=== PATIENT | female | born 1970 | race Hispanic/Latino ===

== ENCOUNTER 2018-07-12 10:03 | Emergency (ER) | payer BC ==
[2018-07-12 11:01] LABS: BASOPHILS % (AUTO) 0.5 % (0.0-5.0); EOSINOPHILS % (AUTO) 0.3 % (0.0-8.0); HEMATOCRIT 30.8 % (36-48); LYMPHOCYTES % (AUTO) 19.5 % (21.0-51.0); MEAN CORPUSCULAR HEMOGLOBIN 21.3 pg (27.0-33.0); MEAN CORPUSCULAR HGB CONC 30.1 g/dL (32.0-36.0); MEAN CORPUSCULAR VOLUME 70.8 fL (79-99); MONOCYTES % (AUTO) 5.2 % (3.0-13.0); NEUTROPHILS % (AUTO) 74.5 % (40.0-77.0); NUCLEATED RED BLOOD CELLS 0.1 % (0.0-0.19); PLATELET COUNT (AUTO) 266 K/uL (130-400); RED BLOOD CELL COUNT(AUTO) 4.35 MIL/uL (4.00-5.50); RED CELL DISTRIBUTION WIDTH 16.2 % (11.0-15.5)
[2018-07-12 11:08] LABS: CREATININE 0.8 mg/dL (0.5-1.5); POTASSIUM 3.7 mmol/L (3.5-5.1)
== END 2018-07-12 11:51 | disposition home or self-care (01) ==
LOC: EDH 10:03
DX: N93.9 Abnormal uterine and vaginal bleeding, unspecified (principal); D64.9 Anemia, unspecified; D25.9 Leiomyoma of uterus, unspecified
CPT/HCPCS: 36415; 76856; 80048; 85025

== ENCOUNTER 2019-04-30 08:28 | Day surgery (SDC) | payer BC ==
[~2019-04-30] VITALS: Ht 157.5 cm; Wt 91.6 kg
[2019-04-30 09:02] VITALS: BP 119/67
[2019-04-30 09:32] LABS: HEMATOCRIT 21.4 % (36-48)
[2019-04-30 11:15] VITALS: BP 127/70
[2019-04-30 15:46] VITALS: BP 109/52
[2019-04-30] MEDS ORDERED: FERS325 PO (17:36)
[2019-04-30] MEDS ORDERED: HYDR-3830 PO (17:36)
== END 2019-04-30 18:20 | disposition home or self-care (01) ==
LOC: DAH 08:28 → WSH 09:00 → DAH 18:20
PROVIDERS: ATTEND Obstetrics & Gynecology
DX: D50.0 Iron deficiency anemia secondary to blood loss (chronic) (principal)
CPT/HCPCS: 36415; 36430; 85014; 85018; 86850; 86900; 86901; 86922 ×2; J7030; P9016 ×2; G0378

== ENCOUNTER 2024-10-09 03:01 | Emergency (ER) | payer BC ==
[~2024-10-09] VITALS: Ht 152.4 cm; Wt 89.8 kg
[~2024-10-09 03:01] MED LIST: FERS325 PO; HYDR-3421 PO; NORE1TAB30 PO
--- NOTE | 2024-10-09 03:14 | ERN ---
ED Note History of Present Illness Stated Complaint: RUQ PAIN Chief Complaint: Abdominal Pain Time Seen by MD: 03:09 Dictation: Patient comes in for some right upper quadrant pain. Said she ate some bad foods. And she says she wants some pain meds and some labs to make sure. She said she does follow up with the PCP. But does not want to gallbladder taken out. No chest pain or shortness of breath Allergies: Coded Allergies: No Known Drug Allergies (Unverified Allergy, Unknown, 04/30/19) Home Meds Reported Medications Hydroxyzine HCl (Hydroxyzine HCl) 25 Mg Tablet, 25 MG PO Q8HRS PRN for ITCHING, TAB 05/26/19 Norethindrone-Ethinyl Estrad (Nortrel 1-35 28 Tablet) 1 Each Tablet, 1 EACH PO AD, TAB 05/26/19 Ferrous Sulfate (Ferrous Sulfate) 325 Mg Ectab, 325 MG PO DAILY, TAB.EC 04/30/19 Past Medical History Past Medical History: Diabetes-Type II, Hypertension Surgical History: Hysterectomy, Review of System Dictation Constitutional: Negative for fever,chills, and weight loss Eyes: Negative for injury, pain,redness, and discharge ENT: Negative for injury,pain or swelling Cardiovascular: Negative for chest pain, palpitations, and edema Respiratory: Negative for shortness of breath, cough, and wheezing, Abdomen/GI: Right upper quadrant abdominal pain Back: Negative for injury and pain : Negative for injury, bleeding and discharge MS/Extremity: Negative for injury and deformity Skin: Negative for rash, and discoloration Neuro: Negative for headache, weakness, numbness, tingling, and seizure Psych: Negative for suicide ideation, homicidal ideation, and hallucinations Initial Vital Sign VS Vital Signs Date Time Temp Pulse Resp B/P (MAP) Pulse Ox O2 Delivery O2 Flow Rate FiO2 10/09/24 03:02 97.7 64 16 168/98 99 Room Air 0 Physical Exam Dictation General: awake, alert, NAD Head/Face: Normocephalic, atraumatic Eyes: PERRL, EOMI, vision at baseline ENT: oral cavity clear, TMs clear, no signs of infection Neck: Trachea midline, supple, no nuchal rigidity Cardiovascular: RRR, normal S1/S2, No MRGs, no JVD Respiratory: CTAB, no respiratory distress, No rales or wheezes Abdomen: Patient does have some right upper quadrant abdominal pain no right lower quadrant abdominal pain is able to ambulate into the triage treatment room I examined her without difficulty Skin: Warm, dry, normal turgor, no rash MS/Extremity: Pulses equal, no cyanosis, neurovascular intact, FROM Neuro: COAx4, GCS 15, strength 5/5, CN 2-12 intact, normal cerebellar exam, normal gait, Psych: Normal behavior, mood, and affect normal Results (Laboratory/Radiology) Laboratory/Radiology Laboratory Tests Test 10/09/24 05:10 White Blood Count 7.3 K/uL (4.8-10.8) Red Blood Count 5.12 MIL/uL (4.00-5.50) Hemoglobin 14.8 g/dL (12.0-16.0) Hematocrit 45.1 % (36-48) Mean Corpuscular Volume 88.1 fL (79-99) Mean Corpuscular Hemoglobin 28.9 pg (27.0-33.0) Mean Corpuscular Hemoglobin Concent 32.8 g/dL (32.0-36.0) Red Cell Distribution Width 13.4 % (11.0-15.5) Platelet Count 147 K/uL (130-400) Mean Platelet Volume 11.2 fL (7.5-10.5) H Immature Granulocyte % (Auto) 0.3 % (0-1) Neutrophils (%) (Auto) 79.4 % (40.0-77.0) H Lymphocytes (%) (Auto) 15.5 % (21.0-51.0) L Monocytes (%) (Auto) 3.2 % (3.0-13.0) Eosinophils (%) (Auto) 1.1 % (0.0-8.0) Basophils (%) (Auto) 0.5 % (0.0-5.0) Neutrophils # (Auto) 5.8 K/uL (1.8-7.7) Lymphocytes # (Auto) 1.1 K/uL (1.0-4.8) Monocytes # (Auto) 0.2 K/uL (0.1-1.0) Eosinophils # (Auto) 0.08 K/uL (0.00-0.70) Basophils # (Auto) 0.04 K/uL (0.00-0.20) Absolute Immature Granulocyte (auto 0.02 K/uL (0-1) Nucleated Red Blood Cells 0.0 % (0.0-0.19) ED Course ED Course Orders Procedure Category Date Status Time Cbc With Differential LAB 10/09/24 Complete 03:14 Comprehensive LAB 10/09/24 In Process Metabolic Panel 03:14 Troponin I High LAB 10/09/24 In Process Sensitivity 03:14 Us Abdominal Ruq\Ltd US 10/09/24 Taken 03:14 12 Lead Ekg Tracing- EKG 10/09/24 Logged Technical 03:14 Ondansetron 4mg Inj PHA 10/09/24 Complete (Zofran 4mg Inj) 03:30 Ct Abdomen/Pelvis W/O CT 10/09/24 Taken Contrast 03:14 Chest 1vw RAD 10/09/24 Taken 03:14 Lipase LAB 10/09/24 In Process 03:14 Morphine 5mg Vial PHA 10/09/24 Complete (Morphine 5mg Vial) 03:30 Current Medications Medications (Trade) Dose Ordered Sig/Horacio Route PRN Reason Start Time Stop Time Status Last Admin Dose Admin Morphine Sulfate (morPHINE 5MG VIAL) 4 mg ONCE ONCE IV 10/09/24 03:30 10/09/24 03:31 DC 10/09/24 05:32 Ondansetron HCl (zoFRAN 4MG INJ) 4 mg ONCE ONCE IVP 10/09/24 03:30 10/09/24 03:31 DC 10/09/24 05:31 Vital Signs Date Time Temp Pulse Resp B/P (MAP) Pulse Ox O2 Delivery O2 Flow Rate FiO2 10/09/24 03:02 97.7 64 16 168/98 99 Room Air 0 Medical Decision Making MDM Ultrasound labs pain meds. And then we will reassess patient was in agreement this I told her eventually she will need to have this be taken out. And she said yes she just does not want this out I said eventually likely. Because sometimes patients can affect her gallbladder she is appreciative this counseling. DX & DISP Disposition: Discharge Departure Impression: Primary Impression: Biliary colic Condition: Stable Referrals: CHIDI GREEN MD (PCP) MANDY ALVAREZ MD Oct 09, 2024 03:14
[2024-10-09 05:23] LABS: BASOPHILS # (AUTO) 0.04 K/uL (0.00-0.20); BASOPHILS % (AUTO) 0.5 % (0.0-5.0); EOSINOPHILS # (AUTO) 0.08 K/uL (0.00-0.70); EOSINOPHILS % (AUTO) 1.1 % (0.0-8.0); HEMATOCRIT 45.1 % (36-48); IMMATURE GRANULOCYTE ABSOLUTE 0.02 K/uL (0-1); LYMPHOCYTES # (AUTO) 1.1 K/uL (1.0-4.8); LYMPHOCYTES % (AUTO) 15.5 % (21.0-51.0); MEAN CORPUSCULAR HEMOGLOBIN 28.9 pg (27.0-33.0); MEAN CORPUSCULAR HGB CONC 32.8 g/dL (32.0-36.0); MEAN CORPUSCULAR VOLUME 88.1 fL (79-99); MONOCYTES # (AUTO) 0.2 K/uL (0.1-1.0); MONOCYTES % (AUTO) 3.2 % (3.0-13.0); NEUTROPHILS # (AUTO) 5.8 K/uL (1.8-7.7); NEUTROPHILS % (AUTO) 79.4 % (40.0-77.0); PLATELET COUNT (AUTO) 147 K/uL (130-400); RED BLOOD CELL COUNT(AUTO) 5.12 MIL/uL (4.00-5.50); RED CELL DISTRIBUTION WIDTH 13.4 % (11.0-15.5); WHITE BLOOD COUNT (AUTO) 7.3 K/uL (4.8-10.8)
[2024-10-09] MEDS: ondanSETRON 4MG INJ IVP ONE (05:31)
[2024-10-09 05:50] LABS: ALBUMIN 4.2 g/dL (3.5-5.0); BILIRUBIN,TOTAL 0.3 mg/dL (0.2-1.0); CREATININE 0.9 mg/dL (0.5-1.0); POTASSIUM 3.3 mmol/L (3.5-5.1); TOTAL PROTEIN, SERUM 7.5 g/dL (6.0-8.3)
[2024-10-09 05:59] VITALS: BP 146/82; PULSE 79; RESP 18; TEMP 98.4; O2SAT 99
--- NOTE | 2024-10-09 08:26 | HMCIMG ---
CT ABDOMEN/PELVIS W/O CONTRAST REASON: ABD PAIN COMPARISON: None. FINDINGS: Lung bases are clear. There are no focal liver lesions. There are normal-appearing kidneys.. Spleen and pancreas appear unremarkable. There are stones present within the gallbladder. Gallbladder appears distended. There is borderline gallbladder wall thickening. Intrahepatic biliary tree does not appear distended. Bowel loops appear unremarkable. This includes normal appearance of the appendix There is no evidence of free fluid or intraperitoneal air. There are no focal fluid collections. Aorta and retroperitoneum appear normal as do pelvic soft tissue structures. There is minimal abdominal wall hernia at the umbilicus, no bowel loops involved. Osseous structures appear unremarkable. IMPRESSION: 1. Cholelithiasis, gallbladder appears distended, there may be early wall thickening or edema, this could represent acute cholecystitis in the appropriate clinical setting. 2. Otherwise unremarkable noncontrast CT abdomen and pelvis with the exception of a minimal umbilical hernia. CT was performed with one or more following dose reduction techniques: automated exposure control, adjustment of the mA and kv according to patient's size, or use of a iterative reconstruction technique.
--- NOTE | 2024-10-09 08:28 | HMCIMG ---
US ABDOMINAL RUQ\E\LTD HISTORY: Adominal Pain COMPARISON: None FINDINGS: There is moderate fatty infiltration of the liver. There are no focal liver masses. The liver is enlarged at 20 cm.There are multiple stones present in the gallbladder. The gallbladder appears distended. There is borderline wall thickness of 3 mm. There is no pericholecystic edema. Common duct is not well visualized due to the overlying large gallstones. The intrahepatic biliary tree does not appear distended.. There is a 1.8 cm cyst lower pole right kidney. Right kidney is otherwise normal with no evidence of mass, hydronephrosis or stone.The pancreas appears normal as well. IMPRESSION: 1. Cholelithiasis, there is borderline wall thickening and gallbladder distention but no evidence of pericholecystic edema. 2. Moderate hepatic steatosis, the liver is mildly enlarged as well.
--- NOTE | 2024-10-09 08:43 | HMCIMG ---
CHEST 1VW REASON: cp COMPARISON: None FINDINGS: Single view of the chest was obtained. Lungs are clear. Heart size is normal. There is no pulmonary vascular congestion. Mediastinum and bony thorax appear unremarkable. IMPRESSION: 1. Normal single view chest x-ray.
--- NOTE | 2024-10-10 05:20 | EKG ---
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
== END 2024-10-09 06:02 | disposition home or self-care (01) ==
LOC: EDH 03:01
DX: K80.70 Calculus of gallbladder and bile duct without cholecystitis without obstruction (principal); E11.9 Type 2 diabetes mellitus without complications; I10 Essential (primary) hypertension; Z90.710 Acquired absence of both cervix and uterus
CPT/HCPCS: 99285; 74176; 96374; 76705; 71045; 96375; 84484; 80053; 83690; 85025; 36415; 93005; J2270; J2405